=== PATIENT | male | born 1990 | race Caucasian/White ===

== ENCOUNTER 2024-03-01 05:20 | Day surgery (SDC) | payer OTHER ==
[2024-02-17 12:17] VITALS: BP 122/79
[~2024-03-01] VITALS: Ht 185.4 cm; Wt 88.5 kg
[~2024-03-01 05:20] MED LIST: VITAMIN D3
[2024-03-01] MEDS ORDERED: DIBUCAINE 15 GM OINT..GM. TUBE RECTAL ONE (07:45)
[2024-03-01] MEDS ORDERED: LIDOCAINE HCL 1%/EPINEPHRINE 20ML VIAL IJ ONE (07:45)
[2024-03-01] MEDS ORDERED: METRONIDAZOLE/SODIUM CHLORIDE 500 MG/100 ML PIGGYBACK IV ONE (07:45)
[2024-03-01] MEDS ORDERED: BUPIVACAINE HCL 30 ML VIAL IJ ONE (07:45)
[2024-03-01] MEDS ORDERED: CEFTRIAXONE SODIUM 2,000 MG VIAL IV ONE (07:45)
[2024-03-01] MEDS ORDERED: POVIDONE-IODINE 118 ML BOTT TOP ONE (07:45)
[2024-03-01] MEDS ORDERED: HEMOSTATIC MATRIX 1 KIT KIT TOP ONE (08:00)
[2024-03-01] MEDS ORDERED: NEURONTIN300 MG PO (10:04)
[2024-03-01] MEDS ORDERED: TRAM1TAB98 PO (10:04)
[2024-03-01] MEDS ORDERED: COLACE100 MG PO (10:04)
== END 2024-03-01 14:10 | disposition home or self-care (01) ==
LOC: U 05:20 → CIR.AMB 05:20
PROVIDERS: ATTEND Surgery
DX: K60.1 Chronic anal fissure (principal); K62.4 Stenosis of anus and rectum; K62.89 Other specified diseases of anus and rectum